=== PATIENT | male | born 1960 | race Hispanic/Latino ===

== ENCOUNTER 2017-01-10 10:31 | Emergency (ER) | payer SELFPAY ==
[2017-01-10 10:39] VITALS: BP 136/79
[2017-01-10] MEDS ORDERED: TORADOL IM ONE (11:40)
--- NOTE | 2017-01-10 11:40 | Emergency Department Report ---
ED Upper Extremity Inj HPI - General Chief Complaint: Shoulder Injury Stated Complaint: LEFT SHOULDER PAIN Time Seen by Provider: 01/10/17 11:36 Source: patient, family Mode of arrival: Ambulatory Limitations: No Limitations - Related Data Previous Rx's Medication Instructions Recorded Last Taken Type Cyclobenzaprine [Flexeril] 10 mg PO TID PRN #10 tablet 01/10/17 Unknown Rx methylPREDNISolone [Medrol] 4 mg PO DAILY #1 tab.ds.pk 01/10/17 Unknown Rx Allergies Allergy/AdvReac Type Severity Reaction Status Date / Time No Known Allergies Allergy Unverified 10/31/13 10:31 ED Review of Systems ROS: Stated complaint: LEFT SHOULDER PAIN Other details as noted in HPI Comment: Unobtainable due to pts medical conditions Constitutional: no symptoms reported, see HPI. denies: chills Eyes: as per HPI. denies: eye pain ENT: as per HPI. denies: ear pain, throat pain Respiratory: no symptoms reported, see HPI. denies: cough, orthopnea Cardiovascular: as per HPI. denies: chest pain, palpitations, dyspnea on exertion, orthopnea Endocrine: no symptoms reported, see HPI. denies: excessive sweating, flushing Gastrointestinal: as per HPI. denies: abdominal pain, nausea, vomiting Genitourinary: as per HPI. denies: urgency, dysuria Musculoskeletal: as per HPI, other (R SHOULDER PAIN FOR YEARS. NO FALL OR TRAUMA. HERE W ). denies: back pain, joint swelling, arthralgia, myalgia Skin: as per HPI. denies: rash, lesions Neurological: as per HPI. denies: headache, weakness Psychiatric: as per HPI. denies: anxiety, depression Hematological/Lymphatic: as per HPI. denies: easy bleeding ED Past Medical Hx - Past Medical History Previous Medical History?: Yes Hx Seizures: Yes - Surgical History Past Surgical History?: Yes Additional Surgical History: carpal tunnel - Social History Smoking Status: Current Every Day Smoker Substance Use Type: Alcohol, Non Opiate Pain, Other - Medications Home Medications: Home Medications Medication Instructions Recorded Confirmed Last Taken Type Cyclobenzaprine [Flexeril] 10 mg PO TID PRN #10 tablet 01/10/17 Unknown Rx methylPREDNISolone [Medrol] 4 mg PO DAILY #1 tab.ds.pk 01/10/17 Unknown Rx ED Physical Exam - General Limitations: No Limitations General appearance: alert - Head Head exam: Present: atraumatic - Eye Eye exam: Present: normal appearance - ENT ENT exam: Present: normal exam - Neck Neck exam: Present: normal inspection - Respiratory Respiratory exam: Present: normal lung sounds bilaterally - Cardiovascular Cardiovascular Exam: Present: regular rate - GI/Abdominal GI/Abdominal exam: Present: soft - Rectal Rectal exam: Present: deferred - Expanded Upper Extremity Exam Left Shoulder Exam: Present: other (PAIN W MOVEMENT ONLY). Absent: tenderness, swelling, abrasion, laceration, ecchymosis, deformity, crepidus, dislocation, erythema, tenderness over AC joint - Back Exam Back exam: Present: normal inspection - Neurological Exam Neurological exam: Present: alert, oriented X3 - Psychiatric Psychiatric exam: Present: normal affect, normal mood - Skin Skin exam: Present: warm, dry, intact ED Course Vital Signs 01/10/17 01/10/17 10:34 11:50 Temperature 98.2 F Pulse Rate 65 Respiratory 18 18 Rate Blood Pressure 136/79 O2 Sat by Pulse 100 Oximetry - Reevaluation(s) Reevaluation #1: 01/10/17 TO ER A/C SHOULDER PAIN JUST WANTS TO KNOW WHAT IS WRONG 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 ED Disposition Clinical Impression: Shoulder pain Disposition: DC-01 TO HOME OR SELFCARE Is pt being admited?: No Does the pt Need Aspirin: No Condition: Stable Instructions: Shoulder Sprain (ED) Additional Instructions: heat compresses sling for 3 days follow up ortho xray normal today motrin over the counter for mild pain- it treats the problem Prescriptions: Cyclobenzaprine [Flexeril] 10 mg PO TID PRN #10 tablet PRN Reason: Muscle Spasm methylPREDNISolone [Medrol] 4 mg PO DAILY #1 tab.ds.pk Referrals: PRIMARY CARE, [Primary Care Provider] - 3-5 Days RANDY PHAM MD [Staff Physician] - 3-5 Days PATRICIA POOL MD [Staff Physician] - 3-5 Days Time of Disposition: 12:11
--- NOTE | 2017-01-10 11:54 | XRay Report ---
XRAY LEFT SHOULDER THREE VIEWS: 01/10/17 10:31:00 CLINICAL: Pain FINDINGS: No fracture or dislocation. Normal glenohumeral joint. Normal AC joint. The soft tissues are normal. IMPRESSION: Normal.
== END 2017-01-10 12:25 | disposition home or self-care (01) ==
LOC: ED 10:31
DX: M25.512 Pain in left shoulder (principal); F17.210 Nicotine dependence, cigarettes, uncomplicated
CPT/HCPCS: 73030; 96372; 99284; J1885

== ENCOUNTER 2018-08-23 18:59 | Emergency (ER) | payer SELFPAY ==
[2018-08-23 19:23] VITALS: BP 102/63
--- NOTE | 2018-08-23 19:25 | Emergency Department Report ---
Chief Complaint: Eye Problems Stated Complaint: NOT WELL Time Seen by Provider: 08/23/18 19:21 - HPI History of Present Illness: This is a 58 y.o. M. that presents to the ER with blurry vision to left eye for a few hours. Patient states a shadow went across his eye. Current smoker. PMH: seizure Wear reading glasses. - Exam Vital Signs: Vital Signs 08/23/18 19:21 Temperature 97.7 F Pulse Rate 67 Respiratory 18 Rate Blood Pressure 102/63 O2 Sat by Pulse 99 Oximetry MSE screening note: Focused history and physical exam performed. Due to findings the following was ordered: Visual acuity ED Disposition for MSE Condition: Stable
== END 2018-08-23 22:10 | disposition left against medical advice (07) ==
LOC: ED 18:59
DX: H53.8 Other visual disturbances (principal); Z53.21 Procedure and treatment not carried out due to patient leaving prior to being seen by health care provider

== ENCOUNTER 2019-04-29 19:59 | Emergency (ER) | payer SELFPAY ==
[2019-04-29 20:10] VITALS: BP 126/81
--- NOTE | 2019-04-29 20:44 | Emergency Department Report ---
Chief Complaint: Extremity Injury, Upper Stated Complaint: PAIN IN LEFT HAND - HPI History of Present Illness: 58 yo M with left wrist pain x 4 years. Reports hx of carpal tunnel syndrome s/p carpal tunnel release several years ago. States pain worse x 3 weeks. Pt denies any trauma or injury to the wrist. Reports intermittent tingling of the left 5th finger. - ROS Review of Systems: ROS: Comment: All other systems reviewed and negative Musculoskeletal: reports wrist pain Neuro: reports paresthesias, denies weakness - Exam Vital Signs: Vital Signs 04/29/19 20:08 Temperature 98.1 F Pulse Rate 57 L Respiratory 18 Rate Blood Pressure 126/81 O2 Sat by Pulse 99 Oximetry Physical Exam: General Limitations: No Limitations General appearance: alert, in no apparent distress - Head Head exam: Present: atraumatic, normocephalic - Eye Eye exam: Present: normal appearance - ENT ENT exam: Present: mucous membranes moist - Neck Neck exam: Present: normal inspection, no vertebral tenderness - Respiratory Respiratory exam: Present: normal lung sounds bilaterally. Absent: respiratory distress - Cardiovascular Cardiovascular Exam: Present: normal rhythm, tachycardia - GI/Abdominal GI/Abdominal exam: Present: soft. Absent: distended, tenderness - Extremities Exam Extremities exam: No erythema or swelling of the wrist; able to make a tight fist and release; able to flex and extend at the wrist; strength and sensation intact; radial pulse strong; cap refill nml - Neurological Exam Neurological exam: Present: alert, oriented X3. Absent: motor sensory deficit - Psychiatric Psychiatric exam: Present: normal affect, normal mood - Skin Skin exam: warm, dry, intact MSE screening note: Focused history and physical exam performed. Due to findings the following was ordered: n/a Chronic left wrist pain x 4 yrs. No acute injury. Pt does not have an emergent medical condition at this time. He is advised to f/u w/ an orthopedist on an outpt basis. Return precautions given. ED Disposition for MSE Clinical Impression: Chronic pain of left wrist Disposition: MED SCREENING EXAM-LEFT Is pt being admited?: No Condition: Stable Instructions: Carpal Tunnel Syndrome (ED), Arthralgia (ED) Referrals: MICHEAL GANDHI MD [Staff Physician] - 3-5 Days DOMINGA UNGER MD [Staff Physician] - 3-5 Days [facility] [Provider Group] - 3-5 Days Time of Disposition: 20:40
== END 2019-04-29 21:35 | disposition left against medical advice (07) ==
LOC: ED 19:59
DX: M25.532 Pain in left wrist (principal); G89.29 Other chronic pain; R20.2 Paresthesia of skin
CPT/HCPCS: 99282